=== PATIENT | female | born 1975 | race African-American/Black ===

== ENCOUNTER 2016-07-18 18:45 | Emergency (ER) | payer MEDICAID ==
[2009-08-01 05:15] VITALS: BMI 26.8
[2016-07-18 19:54] LABS: BASOPHILS 0.4 % (0.0-2.0); HEMATOCRIT 36.3 % (36.0-48.0); HEMOGLOBIN 11.5 g/dL (12-16); IMMATURE GRANULOCYTES 0.3 % (0-5); LYMPHOCYTES 45.7 % (15-50); MCH 26.8 pg (26.0-34.0); MCHC 31.7 g/dL (31.0-37.0); MCV 84.6 fL (80.0-100.0); MEAN PLATELET VOLUME 9.5 fL (7.4-10.4); MONOCYTES 8.3 % (2-11); NEUTROPHILS 44.3 % (40-80); PLATELET COUNT 234 10x3/uL (130-400); RBC 4.29 10x6/uL (4.00-5.40); RDW 14.8 % (11.5-14.5); WBC 11.6 10x3/uL (4.8-10.8)
[2016-07-18 20:17] LABS: ALBUMIN 3.4 g/dL (3.4-5.0); ALKALINE PHOSPHATASE 34 U/L (46-116); ALT (SGPT) 17 U/L (10-68); BILIRUBIN - TOTAL 0.29 mg/dL (0.2-1.3); CALC OSMOLALITY 284 mosm/kg (275-300); CALCIUM 8.8 mg/dL (8.5-10.1); CARBON DIOXIDE 25.1 mmol/L (21.0-32.0); CHLORIDE - SERUM 109 mmol/L (98-107); GLUCOSE 97 mg/dL (74-106); POTASSIUM - SERUM 3.5 mmol/L (3.5-5.1); PROTEIN - SERUM 6.5 g/dL (6.4-8.2); SODIUM 144 mmol/L (136-145); UREA NITROGEN 7 mg/dL (7-18); eGFR NON AFRICAN AMERICAN 65 mL/min (90-120)
[2016-07-18 20:29] LABS: CKMB 0.7 U/L (0.0-3.6); CREATINE KINASE 235 UL (21-215)
[2016-07-18 20:35] LABS: TROPONIN-I < 0.017 ng/mL (0.000-0.060)
== END 2016-07-18 21:41 | disposition home or self-care (01) ==
LOC: D.ER 18:45
PROVIDERS: Emergency Medicine
DX: J06.9 Acute upper respiratory infection, unspecified (principal); C53.9 Malignant neoplasm of cervix uteri, unspecified; I49.3 Ventricular premature depolarization; I45.10 Unspecified right bundle-branch block

== ENCOUNTER 2017-04-30 18:45 | Emergency (ER) | payer MEDICAID ==
[2009-08-01 05:15] VITALS: BMI 26.8
[2017-04-30 19:24] LABS: APPEARANCE HAZY (CLEAR); COLOR DK YELLOW (YELLOW); NITRITE NEGATIVE (NEGATIVE); SPECIFIC GRAVITY 1.025 (1.005-1.020)
[2017-04-30 19:28] LABS: BASOPHILS 0.2 % (0-2); HEMATOCRIT 37.2 % (36.0-48.0); HEMOGLOBIN 12.1 g/dL (12-16); IMMATURE GRANULOCYTES 0.1 % (0-5); LYMPHOCYTES 35.6 % (15-50); MCH 28.1 pg (26.0-34.0); MCHC 32.5 g/dL (31.0-37.0); MCV 86.3 fL (80.0-100.0); MEAN PLATELET VOLUME 9.4 fL (7.4-10.4); MONOCYTES 9.1 % (2-11); PLATELET COUNT 243 10x3/uL (130-400); RBC 4.31 10x6/uL (4.00-5.40); RDW 14.6 % (11.5-14.5); WBC 13.4 10x3/uL (4.8-10.8)
[2017-04-30 19:29] LABS: BILIRUBIN NEGATIVE (NEGATIVE); GLUCOSE NEGATIVE (NEGATIVE); KETONE NEGATIVE (NEGATIVE); PROTEIN TRACE mg/dL (NEGATIVE); UROBILINOGEN NORMAL (NORMAL)
[2017-04-30 19:31] LABS: BACTERIA FEW /hpf (NONE SEEN); EPITHELIAL CELLS >50 /hpf (0-5); WHITE CELLS - URINE >50 /hpf (0-5)
[2017-04-30 19:52] LABS: AMYLASE - SERUM 67 U/L (25-115); LIPASE 111 U/L (73-393)
[2017-04-30 20:08] LABS: HCG URINE NEGATIVE (NEGATIVE)
[2017-04-30 20:34] LABS: BILIRUBIN - TOTAL 0.3 mg/dL (0.2-1.3); CALCIUM 9.3 mg/dL (8.5-10.1); CARBON DIOXIDE 28.4 mmol/L (21.0-32.0); CREATININE - SERUM 1.2 mg/dL (0.6-1.3); POTASSIUM - SERUM 3.4 mmol/L (3.5-5.1)
== END 2017-04-30 21:47 | disposition home or self-care (01) ==
LOC: D.ER 18:45
PROVIDERS: Emergency Medicine
DX: R10.9 Unspecified abdominal pain (principal); N39.0 Urinary tract infection, site not specified; F17.200 Nicotine dependence, unspecified, uncomplicated

== ENCOUNTER 2017-12-04 11:45 | Emergency (ER) | payer MEDICAID ==
[~2017-12-04] VITALS: Ht 170.2 cm; Wt 67.7 kg
[2017-12-04 12:01] VITALS: Ht 170.2 cm; Wt 67.7 kg
[2017-12-04] MEDS ORDERED: ZANAFLEX2 M1 PO (12:05)
[2017-12-04] MEDS ORDERED: INDERAL10 MG PO (12:06)
[2017-12-04] MEDS ORDERED: HYDROCHLOROTHIA25 MG PO (12:06)
[2017-12-04] MEDS ORDERED: VITAMIN D250000 UNIT (12:06)
[2017-12-04 12:58] LABS: BASOPHILS 0.4 % (0-2); EOSINOPHILS 1.5 % (0-7); HEMATOCRIT 38.1 % (36.0-48.0); HEMOGLOBIN 12.3 g/dL (12-16); IMMATURE GRANULOCYTES 0.2 % (0-5); LYMPHOCYTES 33.8 % (15-50); MCH 27.8 pg (26.0-34.0); MCHC 32.3 g/dL (31.0-37.0); MEAN PLATELET VOLUME 8.8 fL (7.4-10.4); NEUTROPHILS 55.1 % (40-80); PLATELET COUNT 251 10x3/uL (130-400); RBC 4.43 10x6/uL (4.00-5.40); RDW 14.2 % (11.5-14.5); WBC 11.3 10x3/uL (4.8-10.8)
[2017-12-04 13:13] LABS: ALBUMIN 3.7 g/dL (3.4-5.0); ANION GAP 9.8 mmol/L (8-16); BILIRUBIN - TOTAL 0.24 mg/dL (0.2-1.3); CALCIUM 9.3 mg/dL (8.5-10.1); CARBON DIOXIDE 29.6 mmol/L (21.0-32.0); CREATININE - SERUM 1.1 mg/dL (0.6-1.3); POTASSIUM - SERUM 4.4 mmol/L (3.5-5.1); PROTEIN - SERUM 7.4 g/dL (6.4-8.2)
[2017-12-04 13:37] LABS: APPEARANCE CLEAR (CLEAR); BACTERIA MODERATE /hpf (NONE SEEN); BILIRUBIN NEGATIVE (NEGATIVE); COLOR YELLOW (YELLOW); EPITHELIAL CELLS 0-5 /hpf (0-5); GLUCOSE NEGATIVE (NEGATIVE); KETONE NEGATIVE (NEGATIVE); MUCUS <1+ /lpf (NONE SEEN); NITRITE NEGATIVE (NEGATIVE); PROTEIN NEGATIVE (NEGATIVE); UROBILINOGEN NORMAL (NORMAL); WHITE CELLS - URINE 0-5 /hpf (0-5)
[2017-12-04] MEDS ORDERED: NORCO 7.5/325 T1 TA1 PO (16:22)
[2017-12-04 17:57] VITALS: BP 116/71
== END 2017-12-04 17:58 | disposition home or self-care (01) ==
LOC: D.ER 11:45
PROVIDERS: Family Medicine
DX: R10.9 Unspecified abdominal pain (principal); R06.02 Shortness of breath; I10 Essential (primary) hypertension

== ENCOUNTER 2018-04-06 10:07 | Emergency (ER) | payer MEDICAID ==
[~2018-04-06] VITALS: Ht 170.2 cm; Wt 64.5 kg
[~2018-04-06 10:07] MED LIST: HYDROCHLOROTHIA25 MG PO; INDERAL10 MG PO; NORCO 7.5/325 T1 TA1 PO; VITAMIN D250000 UNIT; ZANAFLEX2 M1 PO
[2018-04-06 10:18] VITALS: Ht 170.2 cm; Wt 64.5 kg
[2018-04-06] MEDS ORDERED: TORADOL10 MG PO (11:12)
[2018-04-06 11:42] VITALS: BP 126/77
== END 2018-04-06 11:42 | disposition home or self-care (01) ==
LOC: D.ER 10:07
DX: S62.602A Fracture of unspecified phalanx of right middle finger, initial encounter for closed fracture (principal); Y04.2XXA Assault by strike against or bumped into by another person, initial encounter; Y93.89 Activity, other specified; Y92.89 Other specified places as the place of occurrence of the external cause; I10 Essential (primary) hypertension

== ENCOUNTER 2018-04-10 05:33 | Day surgery (SDC) | payer MEDICAID ==
[2018-04-09 10:34] LABS: BASOPHILS 0.2 % (0-2); HEMATOCRIT 37.3 % (36.0-48.0); HEMOGLOBIN 12.3 g/dL (12-16); IMMATURE GRANULOCYTES 0.3 % (0-5); LYMPHOCYTES 30.2 % (15-50); MCH 28.3 pg (26.0-34.0); MCV 85.7 fL (80.0-100.0); MEAN PLATELET VOLUME 9.2 fL (7.4-10.4); NEUTROPHILS 59.3 % (40-80); PLATELET COUNT 240 10x3/uL (130-400); RBC 4.35 10x6/uL (4.00-5.40); RDW 14.8 % (11.5-14.5); WBC 9.7 10x3/uL (4.8-10.8)
[2018-04-09 10:52] LABS: APTT 26.6 SECONDS (22.8-39.4); INR 0.99 (0.85-1.17); PROTIME 12.7 SECONDS (11.6-15.0)
[2018-04-09 10:54] LABS: ANION GAP 11.1 mmol/L (8-16); CALCIUM 8.7 mg/dL (8.5-10.1); CARBON DIOXIDE 27.6 mmol/L (21.0-32.0); CREATININE - SERUM 1.1 mg/dL (0.6-1.3); POTASSIUM - SERUM 3.7 mmol/L (3.5-5.1)
[2018-04-09 11:00] LABS: APPEARANCE CLEAR (CLEAR); BILIRUBIN NEGATIVE (NEGATIVE); COLOR YELLOW (YELLOW); GLUCOSE NEGATIVE (NEGATIVE); KETONE NEGATIVE (NEGATIVE); NITRITE NEGATIVE (NEGATIVE); PROTEIN NEGATIVE (NEGATIVE); UROBILINOGEN NORMAL (NORMAL)
[2018-04-09 11:02] LABS: BACTERIA FEW /hpf (NONE SEEN); EPITHELIAL CELLS 0-5 /hpf (0-5); MUCUS <1+ /lpf (NONE SEEN); WHITE CELLS - URINE 0-5 /hpf (0-5)
[2018-04-09 11:03] LABS: RED CELLS - URINE 0-5 /hpf (0-5)
[~2018-04-10] VITALS: Ht 170.2 cm; Wt 64.4 kg
[~2018-04-10 05:33] MED LIST changes: +TORADOL10 MG PO
[2018-04-10 06:10] VITALS: BP 125/83; Ht 170.2 cm; Wt 64.4 kg
== END 2018-04-10 11:05 | disposition home or self-care (01) ==
LOC: D.OPS 05:33 → D.PAN 07:30 → D.OPS 11:05
PROVIDERS: Orthopaedic Surgery
DX: S62.620A Displaced fracture of middle phalanx of right index finger, initial encounter for closed fracture (principal); X58.XXXA Exposure to other specified factors, initial encounter; Z01.812 Encounter for preprocedural laboratory examination

== ENCOUNTER → 2018-07-10 15:38 | Outpatient (CLI) | payer MEDICAID ==
[2018-04-10 06:10] VITALS: BMI 22.3
== END | disposition home or self-care (01) ==
LOC: D.MRI 15:38
DX: M25.531 Pain in right wrist (principal)

== ENCOUNTER 2019-03-19 14:51 | Emergency (ER) | payer MEDICAID ==
[~2019-03-19] VITALS: Ht 170.2 cm; Wt 68.2 kg
[2019-03-19 14:54] VITALS: Ht 170.2 cm; Wt 68.2 kg
[2019-03-19 18:40] LABS: ANION GAP 14.5 mmol/L (8-16); BILIRUBIN - TOTAL 0.36 mg/dL (0.2-1.3); CALCIUM 8.9 mg/dL (8.5-10.1); CARBON DIOXIDE 24.6 mmol/L (21.0-32.0); CREATININE - SERUM 1.1 mg/dL (0.6-1.3); POTASSIUM - SERUM 4.1 mmol/L (3.5-5.1); PROTEIN - SERUM 7.5 g/dL (6.4-8.2)
[2019-03-19 20:25] VITALS: BP 133/75
== END 2019-03-19 20:25 | disposition home or self-care (01) ==
LOC: D.ER 14:51
PROVIDERS: Emergency Medicine
DX: G89.18 Other acute postprocedural pain (principal); M54.2 Cervicalgia; I10 Essential (primary) hypertension; K21.9 Gastro-esophageal reflux disease without esophagitis

== ENCOUNTER 2019-08-20 08:22 | Emergency (ER) | payer MEDICAID ==
[~2019-08-20] VITALS: Ht 170.2 cm; Wt 70.0 kg
[2019-08-20 08:32] VITALS: Ht 170.2 cm; Wt 70.0 kg
[2019-08-20 08:41] LABS: BASOPHILS 0.6 % (0-2); EOSINOPHILS 1.5 % (0-7); HEMATOCRIT 35.6 % (36.0-48.0); HEMOGLOBIN 11.7 g/dL (12-16); IMMATURE GRANULOCYTES 0.1 % (0-5); LYMPHOCYTES 31.9 % (15-50); MCH 28.4 pg (26.0-34.0); MCHC 32.9 g/dL (31.0-37.0); MCV 86.4 fL (80.0-100.0); MONOCYTES 8.5 % (2-11); NEUTROPHILS 57.4 % (40-80); PLATELET COUNT 224 10x3/uL (130-400); RBC 4.12 10x6/uL (4.00-5.40); RDW 14.1 % (11.5-14.5); WBC 8.6 10x3/uL (4.8-10.8)
[2019-08-20 08:59] LABS: APTT 29.7 SECONDS (22.8-39.4); INR 0.98 (0.85-1.17)
[2019-08-20 09:13] LABS: CALC OSMOLALITY 280 mosm/kg (275-300); CALCIUM 8.7 mg/dL (8.5-10.1); CARBON DIOXIDE 24.6 mmol/L (21.0-32.0); CHLORIDE - SERUM 108 mmol/L (98-107); CREATININE - SERUM 0.9 mg/dL (0.6-1.3); GLUCOSE 100 mg/dL (74-106); SODIUM 142 mmol/L (136-145); UREA NITROGEN 8 mg/dL (7-18); eGFR NON AFRICAN AMERICAN 73 mL/min (90-120)
[2019-08-20] MEDS ORDERED: CYCLOBENZAPRINE10 MG PO (09:16)
[2019-08-20] MEDS ORDERED: ACETAMINOPHEN500 M1 PO (09:16)
[2019-08-20] MEDS ORDERED: IBUPROFEN800 MG PO (09:16)
[2019-08-20 09:28] LABS: ALBUMIN 3.8 g/dL (3.4-5.0); ALKALINE PHOSPHATASE 36 U/L (30-120); ALT (SGPT) 16 U/L (10-68); BILIRUBIN - TOTAL 0.39 mg/dL (0.2-1.3); CKMB 0.5 U/L (0.0-3.6); CREATINE KINASE 110 UL (21-215); MAGNESIUM - SERUM 2.3 mg/dL (1.8-2.4); PROTEIN - SERUM 6.5 g/dL (6.4-8.2); TROPONIN-I < 0.017 ng/mL (0.000-0.060)
[2019-08-20 09:50] LABS: HCG URINE NEGATIVE (NEGATIVE)
[2019-08-20 10:17] VITALS: BP 135/81
== END 2019-08-20 11:44 | disposition home or self-care (01) ==
LOC: D.ER 08:22
PROVIDERS: Family Medicine
DX: S20.211A Contusion of right front wall of thorax, initial encounter (principal); M94.0 Chondrocostal junction syndrome [Tietze]; M79.18 Myalgia, other site; R07.89 Other chest pain; W22.8XXA Striking against or struck by other objects, initial encounter; Y93.9 Activity, unspecified; Y92.9 Unspecified place or not applicable; I10 Essential (primary) hypertension; K21.9 Gastro-esophageal reflux disease without esophagitis

== ENCOUNTER → 2019-12-15 13:37 | Outpatient (CLI) | payer MEDICAID ==
[2019-08-20 08:32] VITALS: BMI 24.1
--- NOTE | ~2019-12-15 | ST ---
PATIENT:RICHA CARTER MEDICAL RECORD: [id number] SEX: F LOCATION:[facility] ORDER #: ADMISSION DATE: 12/15/19 AGE OF PATIENT: 44 REFERRING PHYSICIAN: INTERPRETING PHYSICIAN: RAMONA CHEN MD DATE OF SERVICE: 12/15/2019 PROCEDURE: Treadmill stress test. Baseline ECG is normal. Exercised for 8 minutes 40 seconds on Eliud protocol. Maximum heart rate 139 beats per minute. No ECG change of ischemia. No symptoms of ischemia. Test terminated due to shortness of breath. No arrhythmias were noted. IMPRESSION: Submaximal treadmill stress test with no ECG changes. TRANSINT:[id number] Voice Confirmation ID: [id number] DOCUMENT ID: [id number] RAMONA CHEN MD CC: [id number] DICTATION DATE: 12/16/19837 METAL ALLOY SCIENTIST: 12/17/19519 DEP CLI 12/15/[address] [facility] [address] [place] [address]
--- NOTE | ~2019-12-15 | EC ---
PATIENT:RICHA CARTER DATE OF SERVICE: 12/15/19 SEX: F MEDICAL RECORD: [id number] DATE OF : [birth year] [facility]ATION[facility] AGE OF PATIENT: 44 ADMISSION DATE: 12/15/19 REFERRING PHYSICIAN: INTERPRETING PHYSICIAN: RAMONA CHEN MD ECHOCARDIOGRAM REPORT ECHO CHARGES 4 ECHO COMPLETE Date: 12/15/19 CLINICAL DIAGNOSIS: HTN/HEART MURMUR/ANGINA ECHOCARDIOGRAPHIC MEASUREMENTS (adult normal given) AC root (d.<3.7cm) 2.6 cm LV Septum d (<1.2 cm> 1.4 cm Valve Excursion 1.3 cm LV Septum (systole) 1.5 cm Left Atria (s.<4.0cm> 4.0 cm LVPW d(<1.2cm) 1.4 cm RV (d.<2.3cm) 3.0 cm LVPW (sytole) 1.6 cm LV diastole(<5.6CM) 4.8 cm MV E-F(>70mm/sec) cm LV systole 3.2 cm LVOT Diameter 1.9 cm MV exc.(>10mm) 1.4 cm Est.ejection fraction (50-75%) % DOPPLER: LVIT cm/sec A 72.0 cm/sec E 96.0 cm/sec LA cm/sec RVSP 26 mmHg LVOT 124 cm/sec AOP1/2T m/s Asc. Ao 132 cm/sec RVOT 82 cm/sec RA cm/sec PA 95 cm/sec AV Gradient Peak 6.95 mmHg AV Mean 3.59 mmHg AV Area 2.7 cm MV Gradient Peak 4.98 mmHg MV Mean 1.71 mmHg MV Area cm COMMENTS: Metallurgy Laboratory Technician: 2 NIKKI FREITAS Engine Testing Supervisor: 3 Dr. Rudolph TAPE# PACS Pericardial Effusion N DATE OF SERVICE: Mild LVH. LV internal dimension is normal. Wall motion is normal. EF is greater than or equal to 55%. Aortic valve is tricuspid. No evidence of stenosis by Doppler interrogation. Left atrium is normal at 4.0 cm. Mitral valve shows no prolapse. Trace MR. Right-sided chambers are grossly normal. Trace TR. TRANSINT:[id number] Voice Confirmation ID: [id number] DOCUMENT ID: [id number] ECHOCARDIOGRAM REPORT [id number] RICHA CARTER RAMONA CHEN MD CC: [id number] DICTATION DATE: 12/16/19 0840 SOFTWARE DESIGN MANAGER: 12/16/19 1248 DEP CLI 12/15/19 [place] [id number] [place] [id number]
[~2019-12-15 13:37] MED LIST changes: +ACETAMINOPHEN500 M1 PO; +CYCLOBENZAPRINE10 MG PO; +IBUPROFEN800 MG PO
== END | disposition home or self-care (01) ==
LOC: D.HCCECHO 13:37
PROVIDERS: ATTEND Internal Medicine Interventional Cardiology
DX: I20.9 Angina pectoris, unspecified (principal); I10 Essential (primary) hypertension

== ENCOUNTER 2020-11-02 22:24 | Emergency (ER) | payer MEDICAID ==
[~2020-11-02] VITALS: Ht 170.2 cm; Wt 70.0 kg
[2020-11-02 22:40] VITALS: BP 122/86; Ht 170.2 cm; Wt 70.0 kg
[2020-11-02 23:07] LABS: BASOPHILS 0.4 % (0-2); EOSINOPHILS 2.3 % (0-7); HEMATOCRIT 37.4 % (36.0-48.0); HEMOGLOBIN 11.9 g/dL (12-16); IMMATURE GRANULOCYTES 0.2 % (0-5); LYMPHOCYTE ABS# 4.52 10x3/uL (1.18-3.74); LYMPHOCYTES 36.1 % (15-50); MCH 27.4 pg (26.0-34.0); MCHC 31.8 g/dL (31.0-37.0); MCV 86.2 fL (80.0-100.0); MEAN PLATELET VOLUME 9.1 fL (7.4-10.4); MONOCYTES 9.7 % (2-11); NEUTROPHIL ABS# 6.42 10x3/uL (1.56-6.13); NEUTROPHILS 51.3 % (40-80); RBC 4.34 10x6/uL (4.00-5.40); RDW 14.1 % (11.5-14.5); WBC 12.5 10x3/uL (4.8-10.8)
[2020-11-02 23:11] LABS: PLATELET COUNT 290 10x3/uL (130-400)
[2020-11-02 23:17] LABS: BILIRUBIN NEGATIVE (NEGATIVE); KETONE NEGATIVE (NEGATIVE); NITRITE NEGATIVE (NEGATIVE); UROBILINOGEN NORMAL mg/dL (< 2)
[2020-11-02 23:18] LABS: BACTERIA FEW HPF (NONE SEEN); SQUAMOUS EPITHELIAL 0-5 HPF (0-4)
[2020-11-02 23:19] LABS: ANION GAP 11.9 mmol/L (8-16); CALCIUM 9.1 mg/dL (8.5-10.1); CARBON DIOXIDE 28.8 mmol/L (21.0-32.0); CREATININE - SERUM 1.2 mg/dL (0.6-1.3); POTASSIUM - SERUM 3.7 mmol/L (3.5-5.1)
[2020-11-02 23:24] LABS: ALBUMIN 3.6 g/dL (3.4-5.0); BILIRUBIN - TOTAL 0.21 mg/dL (0.2-1.3); PROTEIN - SERUM 7.3 g/dL (6.4-8.2)
== END 2020-11-03 01:32 | disposition home or self-care (01) ==
LOC: D.ER 22:24
PROVIDERS: Family Medicine
DX: R20.0 Anesthesia of skin (principal); R53.1 Weakness

== ENCOUNTER 2020-12-27 16:17 | Observation (INO) | payer MEDICAID ==
[~2020-12-27] VITALS: Ht 170.2 cm; Wt 70.9 kg
[2020-12-27 17:42] LABS: ANION GAP 14.5 mmol/L (8-16); CALCIUM 8.5 mg/dL (8.5-10.1); CARBON DIOXIDE 23.7 mmol/L (21.0-32.0); CREATININE - SERUM 1.2 mg/dL (0.6-1.3); POTASSIUM - SERUM 3.2 mmol/L (3.5-5.1)
[2020-12-27 18:01] LABS: BASOPHILS 0.3 % (0-2); EOSINOPHILS 0.1 % (0-7); HEMATOCRIT 31.3 % (36.0-48.0); HEMOGLOBIN 9.9 g/dL (12-16); LYMPHOCYTES 15.8 % (15-50); MCH 27.9 pg (26.0-34.0); MCHC 31.6 g/dL (31.0-37.0); MCV 88.2 fL (80.0-100.0); MEAN PLATELET VOLUME 7.6 fL (7.4-10.4); MONOCYTES 8.9 % (2-11); NEUTROPHILS 74.9 % (40-80); PLATELET COUNT 257 10x3/uL (130-400); RBC 3.55 10x6/uL (4.00-5.40); RDW 14.9 % (11.5-14.5); WBC 22.6 10x3/uL (4.8-10.8)
[2020-12-27 18:11] LABS: ALBUMIN 3.9 g/dL (3.4-5.0); BILIRUBIN - TOTAL 0.62 mg/dL (0.2-1.3); MAGNESIUM - SERUM 2.2 mg/dL (1.8-2.4); PROTEIN - SERUM 7.3 g/dL (6.4-8.2)
[2020-12-27 19:34] LABS: BILIRUBIN NEGATIVE (NEGATIVE); KETONE 1+ mg/dL (< 1+); NITRITE NEGATIVE (NEGATIVE); SQUAMOUS EPITHELIAL 10 HPF (0-4); UROBILINOGEN NORMAL mg/dL (< 2); WHITE CELLS - URINE 91 HPF (0-4)
[2020-12-27 22:03] LABS: APTT 24.4 SECONDS (22.8-39.4); INR 1.16 (0.85-1.17); PROTIME 13.7 SECONDS (11.6-15.0)
--- NOTE | 2020-12-27 22:07 | NUR ---
SENT TO OR
--- NOTE | 2020-12-27 23:04 | NUR ---
DAUGHTER KASHMIR PRESENT IN ER WITH PATIENT. DAUGHTER CALLED ON CELL AT [id number] SURGERY STATUS UPDATE. NOTED,BROWN ROSENBERG
[2020-12-28] VITALS (7 sets, daily range): BP systolic 108–151; BP diastolic 56–78; Ht 170.2 cm; Wt 70.9 kg
--- NOTE | 2020-12-28 00:51 | NUR ---
PT REC'D TO LABOR AND DELIVERY FROM RECOVERY AT THIS TIME. RATES PAIN 10/10. IV TO RT AC PATENT. INCISION INTACT WITH ADHESIVE. NO GRAINAGE NOTED. ICE PACK PLACED TO ABDOMEN. IBARRA CATH PATENT WITN DARK YELLOW URINE NOTED AT THIS TIME. SCDS PLACED ON ARRIVAL TO UNIT. NO DISTRESS NOTED. PT ORIENTED TO ROOM AND CALL LIGHT. Louis OSULLIVAN. RN
[2020-12-28] MEDS ORDERED: VALIUM5 MG PO (01:08)
--- NOTE | 2020-12-28 01:44 | NUR ---
PT MEDICATED WITH TORADOL 30 MG IVP. PAIN 04/09. L SHI RN
--- NOTE | 2020-12-28 03:09 | NUR ---
PT ASLEEP. DID NOT AWAKEN. L [MICHELLE, RN
--- NOTE | 2020-12-28 04:01 | NUR ---
PT REC'D AWAKE RATES PAIN 02/07. MEDICTED WITH DILAUDID 2 MG. VSS. NO DISTRESS NOTED. Louis OSULLIVANRN
--- NOTE | 2020-12-28 04:36 | NUR ---
PT RATES PAIN AT 310. NO DISTRESS NOTED. Louis OSULLIVAN RN
--- NOTE | 2020-12-28 05:20 | NUR ---
CALLED UNIT AT THIS TIME. INFORMED AF URINE OUT PUT OF APPROX 120 ML SINCE ARRIVAL TO FLOOR. ORDER REC'D FOR 1 LITER BOLUS OF FLUID. Louis OSULLIVAN RN
--- NOTE | 2020-12-28 05:26 | NUR ---
LR BOLUS STARTED AT 999 ML/HR. Louis OSULLIVAN RN
[2020-12-28 06:47] LABS: BASOPHILS 0 % (0-2); EOSINOPHILS 0 % (0-7); HEMATOCRIT 29.9 % (36.0-48.0); HEMOGLOBIN 9.8 g/dL (12-16); LYMPHOCYTES 8.2 % (15-50); MCH 28.8 pg (26.0-34.0); MCHC 32.9 g/dL (31.0-37.0); MCV 87.4 fL (80.0-100.0); MEAN PLATELET VOLUME 7.6 fL (7.4-10.4); MONOCYTES 7.1 % (2-11); NEUTROPHILS 84.7 % (40-80); RBC 3.42 10x6/uL (4.00-5.40); RDW 14.5 % (11.5-14.5)
--- NOTE | 2020-12-28 07:27 | NUR ---
PT LYING IN SEMI-SALES'S POSITION IN BED. AWAKE. AAO X 3. VSS. HRRR WITHOUT AUDIBLE MURMUR. BBS CLEAR. BS HYPOACTIVE X 2 LOWER QUADS. ABDOMINAL INCISION WITHOUT DRAINAGE, REDNESS OR SWELLING. ABDOMEN SOFT/NON-DISTENDED. SCANT SEROSANGUINOUS VAGINAL DISCHARGE NOTED ON CHUX. PERIPAD IN PLACE AT THIS TIME. FRESH ICE PACK TO INCISION. IBARRA TO GRAVITY DRAINING CONCENTRATED YELLOW URINE. SCDS ON BLE. PPP. NO EDEMA NOTED TO BLE. PIV TO RIGHT AC. SITE CLEAR. PT C/O ABDOMINAL PAIN OF "10" ON 0-10 PAIN SCALE. FRESH ICE WATER PROVIDED TO PT. SR UP X 2. CALL LIGHT IN REACH.
--- NOTE | 2020-12-28 07:29 | NUR ---
TORADOL 30 MG GIVEN SIVP OVER 2 MINUTES. PT INSTRUCTED ON MED. VERBALIZES UNDERSTANDING.
[2020-12-28 07:36] LABS: PLATELET COUNT 160 10x3/uL (130-400); WBC 13.8 10x3/uL (4.8-10.8)
--- NOTE | 2020-12-28 08:05 | NUR ---
DR FLORES NOTIFIED OF LAB RESULTS. NO NEW ORDERS RECEIVED.
--- NOTE | 2020-12-28 08:54 | NUR ---
PT TALKING ON PHONE. C/O ABDOMINAL PAIN OF "9" ON 0-10 PAIN SCALE. DILAUDID 2 MG GIVEN SIVP OVER 2 MINUTES. PT INSTRUCTED ON MED. VERBALIZES UNDERSTANDING.
--- NOTE | 2020-12-28 09:40 | NUR ---
DR FLORES VISITS WITH PT.
[2020-12-28 11:19] LABS: BASOPHILS 0.1 % (0-2); EOSINOPHILS 0 % (0-7); HEMATOCRIT 29.8 % (36.0-48.0); HEMOGLOBIN 9.6 g/dL (12-16); LYMPHOCYTES 10.1 % (15-50); MCH 28.3 pg (26.0-34.0); MCHC 32.2 g/dL (31.0-37.0); MEAN PLATELET VOLUME 7.2 fL (7.4-10.4); MONOCYTES 9.6 % (2-11); NEUTROPHILS 80.2 % (40-80); PLATELET COUNT 171 10x3/uL (130-400); RBC 3.38 10x6/uL (4.00-5.40); RDW 14.5 % (11.5-14.5); WBC 15.5 10x3/uL (4.8-10.8)
--- NOTE | 2020-12-28 11:37 | NUR ---
PT SITTING UP IN BED. VISITS WITH FAMILY. VSS. DENIES NEEDS OR C/O.
--- NOTE | 2020-12-28 12:38 | NUR ---
PT SITTING UP IN BED. WATCHES TV. STATES ABDOMINAL PAIN OF "9" ON 0-10 PAIN SCALE. TORADOL 30 MG GIVEN SIVP OVER 2 MINUTES.
--- NOTE | 2020-12-28 13:25 | NUR ---
DR FLORES ON UNIT. ORDERS RECEIVED.
--- NOTE | 2020-12-28 13:50 | NUR ---
PT C/O ABDOMINAL PAIN OF "8" ON 0-10 PAIN SCALE. DILAUDID 2 MG GIVEN SIVP OVER 2 MINUTES. PT INSTRUCTED ON MED. VERBALIZES UNDERSTANDING.
--- NOTE | 2020-12-28 14:40 | NUR ---
PIV CONVERTED TO SALINE LOCK. FLUSHES EASILY WITH NS. SITE CLEAR. IBARRA DC'D WITH 500 ML OF CONCENTRATED YELLOW URINE NOTED IN BAG. PT OOB AND AMB, SLOWLY, WITH STEADY GAIT TO BR. UNABLE TO VOID AT THIS TIME. PERICARE DONE. PAD AND PANTIES ON. PT AMBULATES BACK TO BED. MADELINE ACTIVITY WELL. REQUESTS AND RECEIVES WARM BLANKET. SR UP X 2. CALL LIGHT IN REACH.
--- NOTE | 2020-12-28 16:54 | NUR ---
PT C/O ABDOMINAL PAIN OF "8" ON 0-10 PAIN SCALE. PERCOCET 10/325 GIVEN PO ORDERED. PT INSTRUCTED ON MED. VERBALIZES UNDERSTANDING. FRESH ICE PACK AND ICE WATER PROVIDED.
--- NOTE | 2020-12-28 18:17 | NUR ---
PT C/O ABDOMINAL PAIN OF "10" ON 0-10 PAIN SCALE. MOTRIN 600 MG GIVEN PO ORDERED.
--- NOTE | 2020-12-28 18:21 | NUR ---
PT STATES WILL SHOWER AND PT MOM WILL HELP. PT PROVIDED WITH TOILETRIES AND LINENS FOR SHOWER.
--- NOTE | 2020-12-28 18:32 | NUR ---
PT STATES VOIDED. 300 ML OF DARK, YELLOW URINE NOTED.
--- NOTE | 2020-12-28 20:16 | NUR ---
PT REC'D IN BED AT THIS TIME. COMPLAINS OF PAIN 03/10. VSS. INCISION TO ABDOMEN INTACT. NO REDNESS/DRAINAGE NOTED. PT VOIDING WITHOUT DIFFICULTY. CALL LIGHT IN PT REACH. NO DISTRESS NOTED. Lousi OSULLIVAN RN
--- NOTE | 2020-12-28 20:45 | NUR ---
REPORT TO Louis PRESSLEY RN. Louis OSULLIVAN RN
--- NOTE | 2020-12-28 21:02 | NUR ---
PT MEDICATED AT THIS TIME WITH PERCOCET FOR PAIN OF 04/09. Louis OSULLIVAN RN
--- NOTE | 2020-12-28 21:45 | NUR ---
PT ARRIVED TO WOMENS UNIT FROM L/D. SHE STATES SHE HAS NO PAIN. PT IS VERY LOUD. SHE KNOWS TO CALL IF SHE NEEDS ANYTHING.
[2020-12-29] VITALS: BP 122/62
--- NOTE | 2020-12-29 | NUR ---
PT HAS BEEN ON THE PHONE TALKING MOST OF HER TIME HERE. NO C/O OR NEEDS HER MOTHER IS NOW BACK FROM BEING GONE A WHILE.
--- NOTE | 2020-12-29 02:36 | NUR ---
PT IS RESTING QUIETLY IN HER ROOM. HE MOTHER IS SPENDING THE NIGHT.
--- NOTE | 2020-12-29 07:45 | NUR ---
PT MOTHER OUT TO DESK ASKING WHEN DISCHARGE WOULD OCCUR, EXPLAINED THAT DR FLORES WOULD NEED TO COME SEE HER, AT THIS TIME NO ORDER IN PLACE TO DISCHARGE.
[2020-12-29 07:51] LABS: BASOPHILS 0.5 % (0-2); EOSINOPHILS 1.9 % (0-7); HEMATOCRIT 26.3 % (36.0-48.0); HEMOGLOBIN 8.5 g/dL (12-16); LYMPHOCYTES 29.5 % (15-50); MCH 28.1 pg (26.0-34.0); MCHC 32.4 g/dL (31.0-37.0); MCV 86.8 fL (80.0-100.0); MEAN PLATELET VOLUME 7.3 fL (7.4-10.4); MONOCYTES 10.6 % (2-11); NEUTROPHILS 57.5 % (40-80); PLATELET COUNT 163 10x3/uL (130-400); RBC 3.02 10x6/uL (4.00-5.40); RDW 14.4 % (11.5-14.5); WBC 11.9 10x3/uL (4.8-10.8)
[2020-12-29 08:12] LABS: CALC OSMOLALITY 276 mosm/kg (275-300); CALCIUM 7.9 mg/dL (8.5-10.1); CARBON DIOXIDE 27.1 mmol/L (21.0-32.0); CHLORIDE - SERUM 107 mmol/L (98-107); CREATININE - SERUM 0.7 mg/dL (0.6-1.3); GLUCOSE 98 mg/dL (74-106); POTASSIUM - SERUM 3.6 mmol/L (3.5-5.1); SODIUM 140 mmol/L (136-145); UREA NITROGEN 7 mg/dL (7-18); eGFR NON AFRICAN AMERICAN > 90 mL/min (90-120)
--- NOTE | 2020-12-29 08:59 | NUR ---
PT CALLS OUT ASKING ABOUT DISCHARGE, STATES THAT SHE OR HER MOTHER HAVE OTHER APPOINTMENTS TODAY. EXPALINED AGAIN THAT AT THIS TIME NO DISCHARGE ORDER WAS IN PLACE.
--- NOTE | 2020-12-29 10:20 | NUR ---
DR FLORES AT BEDSIDE.
--- NOTE | 2020-12-29 10:40 | NUR ---
OK TO DRAW H&H NOW PER DR FLORES.
--- NOTE | 2020-12-29 10:45 | NUR ---
H/H DRAWN PER THIS RN, PT TOLERATES WELL. SALINE LOCK FROM RIGHT AC REMOVED WITH CATH INTACT. SHE RATES PAIN AT 10/10, SEE EMAR FOR PAIN MED GIVEN. NO OTHER NEEDS AT THIS TIME.
[2020-12-29 11:06] LABS: HEMATOCRIT 27.1 % (36.0-48.0)
--- NOTE | 2020-12-29 11:30 | NUR ---
LAB RESULTS CALLED TO DR FLORES, DISCHARGE ORDER RECEIVED, PT NEEDS FOLLOW UP APPOINTMENT AT CLINIC IN 2 WEEKS.
--- NOTE | 2020-12-29 12:13 | NUR ---
verbal and written discharge instructions gone over with pt. she states her understanding to all. written script given for Percocet 5/325mg and Motrin 600mg. denies questions or concerns. Taken out by wheelchair, home by private car with her mother.
--- NOTE | 2020-12-31 22:14 | OP ---
PATIENT NAME: RICHA CARTER MEDICAL RECORD: [id number] :79 LOCATION:[facility].1221 ADMISSION DATE:12/28/20 SURGEON: RONAN FLORES DO DATE OF OPERATION: 12/28/2020 PREOPERATIVE DIAGNOSIS: Ruptured ectopic . POSTOPERATIVE DIAGNOSIS: Ruptured ectopic . PRIMARY SURGEON: Ronan Flores DO. SHEETER MACHINE OPERATOR SURGEON: Dr. Calloway. ANESTHESIA: General. PROCEDURES: Diagnostic laparoscopy, exploratory laparotomy via Pfannenstiel incision, left salpingectomy and evacuation of hemoperitoneum. FINDINGS: Ruptured ectopic , actively bleeding left salpinx, 500 mL blood and clots in the abdomen. SPECIMEN: Products of conception. ESTIMATED BLOOD LOSS: 300 mL. IV FLUIDS: Per anesthesia. URINE OUTPUT: 100 mL clear yellow urine. INFECTION PROPHYLAXIS: 900 mg clindamycin, abdominal prep and vaginal Betadine prep. COMPLICATIONS: None. INDICATION: Prior to procedure, risks of surgery including bleeding, pain, infection, damage to surrounding structures including bladder, bowel, ureters as well as VTE and reoperation were reviewed, especially due to history of 3 C-sections and hernia repair in the past. The patient expressed understanding and agreed to procedure. DESCRIPTION OF PROCEDURE: The patient was taken to the operating room where general anesthesia was administered and found to be adequate. She was prepped and draped in normal sterile fashion in dorsal lithotomy position. Redd catheter was placed without incident. A speculum placed. Anterior lip of cervix was grasped with tenaculum. Uterus sounded to 7 cm, slightly dilated with Bora dilators and HUMI retractor placed. Attention was then turned to the abdomen. A 5 mm incision made above the umbilicus due to history of hernia repair. A 5 mm trocar with laparoscope was placed using direct entry technique. Entry cofonfirmed and no trauma noted at entry. The patient placed in Trendelenberg. Pneumoperitoneum created and abdomen noted to be full of blood. Vitals 80/40s at this time as well. Due to VS & amount of blood visualized, decision to perform laparotomy. Also decided for blood transfuison, with 2 units PRBC. Port removed and OPERATIVE REPORT [id number] RICHA CARTER abdomen desufflated. A Pfannenstiel incision made with a scalpel and carried down to underlying layer of fascia. Fascia was incised in the midline and extended laterally with Bella scissors. Fascia grasped with Alex clamps and rectus muscle dissected sharply, on superior and inferior aspects. Rectus muscle in the midline. Peritoneum identified and noted to be free of bowel or bladder and entered bluntly, with gentle traction. Bladder blade was placed. A copious amount of blood noted. Suction utilized to remove blood clots. Uterus palpated and brought out. Kochers used to grasp on the right and left sides of uterus at cornual region. On palpation left side noted to have a cystic structure and while suctioning bleeding localized to the left side. Ruptured portion with active heavy bleeding noted on left fallopian tube. Rachelle clamp used across the fallopian tube and fimbria to stop bleeding. Fimbria and tube removed and suture ligated with good hemostasis. Able to suction most of pelvis at this time and irrigated as well. Right side inspected and grossly normal. Alex clapms removed, but some bleeding noted on left side. Cautery and Figure of eight stitch placed with hemostasis. Uterus return to pelvis and Cam placed. All lap counts correct. Muscle closed in a running fashion with 2-0 Monocryl. Irrigated and no bleeidng noted. Fascia closed in a running fashion with 0 Vicryl. Subcutaneous layer irrigated and Bovie used for such to cauterize any bleeding vessels. Plain gut used to close subcutaneous tissue and 3-0 Monocryl was used to close the skin in a subcuticular fashion. Dermabond applied. The 5 mm incision above the umbilicus was also closed with 3-0 Monocryl and Dermabond applied. The patient was then awakened and taken to recovery room in stable condition. All lap, sponge and needle counts were correct times 2. TRANSINT:[id number] Voice Confirmation ID: [id number] DOCUMENT ID: [id number] RONAN FLORES DO at 3688 CC: [id number] DICTATION DATE: 12/28/202243 CERTIFIED MAINTENANCE WELDER: 12/29/20 0148 DIS IN 12/29/20 [facility] [address] [place] [address]
== END 2020-12-29 12:17 | disposition home or self-care (01) ==
LOC: D.ER 16:17 → OBSVTIME 12-28 00:56 → D.LD 12-28 00:56 → D.WS 12-28 21:20
PROVIDERS: Emergency Medicine; Family Medicine; ADMIT Obstetrics & Gynecology; ATTEND Obstetrics & Gynecology
DX: O00.102 Left tubal pregnancy without intrauterine pregnancy (principal); R10.32 Left lower quadrant pain; Z3A.01 Less than 8 weeks gestation of pregnancy; D64.9 Anemia, unspecified; I10 Essential (primary) hypertension